=== PATIENT | female | born 1965 | race Caucasian/White ===

== ENCOUNTER → 2016-10-29 | Outpatient (CLI) | payer OTHER ==
--- NOTE | 2016-10-30 08:25 | MM ---
Reason for exam: screening (asymptomatic). Last mammogram was performed 1 year and 3 months ago. History: Patient is postmenopausal. Family history of premenopausal breast cancer in mother. 2 benign excisional biopsies of the right breast. Physical Findings: A clinical breast exam by your physician is recommended on an annual basis and results should be correlated with mammographic findings. MG Screening Mammo w CAD Bilateral CC and MLO view(s) were taken. Prior study comparison: August 01, 2015, bilateral MG screening mammo w CAD. July 07, 2014, bilateral MG screening mammo w CAD. The breast tissue is heterogeneously dense. This may lower the sensitivity of mammography. Benign calcifications bilaterally. No significant changes when compared with prior studies. ASSESSMENT: Benign, BI-RAD 2 RECOMMENDATION: Routine screening mammogram of both breasts in 1 year.
--- NOTE | 2016-10-31 11:54 | BD ---
EXAMINATION TYPE: MG DEXA axial skeleton. DATE OF EXAM: 10/29/2016 3:08 PM COMPARISON: NONE CLINICAL HISTORY: Height: 68 Weight: 184.7 FRAX RISK QUESTIONS: Alcohol (3 or more units per day): no Family History (Parent hip fracture): NO Glucocorticoids (More than 3mos): NO (Ex: prednisone, prednisolone, methylprednisolone, dexamethasone, and hydrocortisone). History of Fracture in Adulthood: NO Secondary Osteoporosis: 1. Type 1 Diabetes: NO 2. Hyperthyroidism: NO 3. Menopause before 45: YES 4. Malnutrition: NO 5. Chronic liver disease: NO Rheumatoid Arthritis: NO Current Tobacco Use: NO RISK FACTORS HISTORY OF: Hip Fracture (Right/Left): NO Spine Fracture: NO History of Wrist Fracture: NO Surgery to Spine/Hip(right/left)/Wrist (right/left): RT WRIST CARPAL TUNNEL When: UNSURE Family History of Osteoporosis: YES Active: YES Diet low in dairy products/other sources of calcium: NO Postmenopausal woman: HYSTERECTOMY AGE 41 Lost more than 2 inches in height since high school: JUST 2 INCHES Frequent falls: NO Adrenal Insufficiency: NO MEDICATIONS: CELEXA, WELLBUTRIN, NORCO, CALCIUM, VITAMINS Thyroid Medications: SYNTHROID How Long: MANY YEARS EXAM MEASUREMENTS: Bone mineral densitometry was performed using the [employer] System. Bone mineral density as measured about the Lumbar spine is: ----- L1-L4(G/cm2): 1.509 T Score Values are as follows: ----- L2: 2.5 ----- L3: 4.2 ----- L4: 3.3 ----- L1-L4: 2.7 Bone mineral density BASELINE Bone mineral density about the R hip (g/cm2): 1.154 Bone mineral density about the L hip (g/cm2): 1.162 T Score values are as follows: -----R Neck: 0.8 -----L Neck: 0.9 -----R Intertrochanter: 0.1 -----L Intertrochanter: -0.3 Bone mineral density BASELINE IMPRESSION: No evidence for osteoporosis or osteopenia NOTE: T-SCORE=SD OF THE YOUNG ADULT MEAN.
== END ==
LOC: RADMAMWWP 14:35
PROVIDERS: ATTEND Obstetrics & Gynecology
DX: Z12.31 Encounter for screening mammogram for malignant neoplasm of breast (principal); Z78.0 Asymptomatic menopausal state
CPT/HCPCS: 77080; G0202

== ENCOUNTER → 2017-12-17 | Outpatient (CLI) | payer OTHER ==
--- NOTE | 2017-12-25 11:06 | HM ---
HOLTER MONITOR REPORT A 24-hour DCG report. Patient did not have any significant symptoms except 2 episodes when she felt her heart raced for a few seconds. Predominant rhythm appears to be sinus with a heart rate ranging from 48 to 119 beats per minute. Average heart rate was 87 beats per minute. Rare isolated PVCs were noted and also rare PACs were noted. There was no significant bradyarrhythmia. When patient felt her racing heart, she had one isolated PVC on one occasion. At the other time when she complained of a racing heart, she had 2 to 3 PACs in a row. At other times, she had short runs of what seems to be a PAT at a rate of about 100 beats per minute of about 5 beats or so, but no significant symptoms were reported. FINAL IMPRESSION: This patient has predominant sinus rhythm with an average heart rate of 67 beats per minute. When she complained of having some racing heart, there was no significant arrhythmia. She did have PAT of about 5 beats in a row for which she did not report symptoms. Overall, no significant arrhythmia. MMODL / IJN: [id number] /
== END | disposition home or self-care (01) ==
LOC: RADECHMAIN 11:55
PROVIDERS: ATTEND Family Medicine
DX: R00.0 Tachycardia, unspecified (principal); R00.2 Palpitations
CPT/HCPCS: 93225; 93226

== ENCOUNTER → 2018-05-12 | Outpatient (CLI) | payer OTHER ==
--- NOTE | 2018-05-13 09:53 | US ---
EXAMINATION TYPE: US thyroid st tissue head/neck DATE OF EXAM: 05/12/2018 COMPARISON: NONE CLINICAL HISTORY: E01.0 Thyromegaly. Thyromegaly GLAND SIZE: Right Lobe: 4.5 x 1.7 x 1.6 cm Overall Parenchyma: homogenous Left Lobe: 3.6 x 1.3 x 1.2 cm Overall Parenchyma: homogeneous Isthmus Thickness: 0.3 cm NODULES RIGHT: # of nodules measured on right: 0 LEFT: # of nodules measured on left: 0 ISTHMUS: # of nodules measured in the isthmus: 0 Bilateral neck scanned, no evidence of lymphadenopathy. IMPRESSION: 1. Normal thyroid ultrasound
== END | disposition home or self-care (01) ==
LOC: RADUSWWP 15:13
PROVIDERS: ATTEND Family Medicine
DX: E01.0 Iodine-deficiency related diffuse (endemic) goiter (principal)
CPT/HCPCS: 76536

== ENCOUNTER → 2018-06-04 | Outpatient (CLI) | payer OTHER ==
--- NOTE | 2018-06-04 16:56 | FL ---
EXAMINATION TYPE: FL barium swallow DATE OF EXAM: 06/04/2018 COMPARISON: None HISTORY: Dysphasia TECHNIQUE: A double air contrast UGI study is performed. FINDINGS: Fluoroscopy: 58 seconds Images: 12 Esophagus dilates to normal caliber has normal contour to the gastroesophageal junction. Gastroesopha geal junction opens to normal caliber. There is complete stripping of the esophageal bolus in the hor izontal drinking position. No intraluminal or extramural defects are evident. IMPRESSIONS: 1. Normal esophagram
== END | disposition home or self-care (01) ==
LOC: RADFLWHC 10:30
PROVIDERS: ATTEND Otolaryngology
DX: R13.10 Dysphagia, unspecified (principal)
CPT/HCPCS: 74220

== ENCOUNTER → 2018-07-21 | Outpatient (CLI) | payer OTHER ==
--- NOTE | 2018-07-21 16:28 | MR ---
EXAMINATION TYPE: MR lumbar spine wo con DATE OF EXAM: 07/21/2018 COMPARISON: NONE HISTORY: Low back pain, intervertebral disc degeneration, and radiculopathy per order. Pain and numbn ess into bilateral buttocks and thigh since May 02 per patient TECHNIQUE: Multiplanar, multisequence imaging of the lumbar spine is performed without IV contrast. FINDINGS: Sagittal images of the lumbar spine show vertebral body heights and alignment to appear sat isfactory. Multilevel disc desiccation is present. There is mild multilevel disc space narrowing. The re is advanced disc space narrowing L5-S1 level with heterogeneous Modic type I endplate changes. Mil d multilevel anterior spurring is seen. Multilevel small posterior disc herniations are seen on sagit virgil images. The conus medullaris is normal in position and signal ending mid L1 level. There is 1.0 c m Tarlov cyst S2 level sagittal image 7. Axial images begin at T12-L1 level is felt within normal limits. Axial images at the L1-L2 level show mild broad based posterior disc protrusion mildly effacing anter ior thecal sac and axial image 23. Bilateral neural foramina are patent. Axial images at L2-L3 level show mild broad disc bulge mildly effacing anterior thecal sac, bilateral neural foramina are patent. Axial images at L3-L4 level show mild to moderate broad-based posterior disc protrusion mildly effaci ng anterior thecal sac and causing mild bilateral anterior inferior neural foraminal narrowing. Axial images at L4-L5 level show mild to moderate facet degenerative changes and ligament flavum hype rtrophy effacing posterior lateral thecal sac. There is broad disc bulge with central disc protrusion component effacing anterior thecal sac. Bilateral neural foramina are felt patent. Axial images at L5-S1 level show mild facet degenerative changes bilaterally. There is moderate broad disc bulge with central disc protrusion seen. Broad disc bulge causes mild to moderate left inferior neural foraminal narrowing and moderate to severe right-sided neural foraminal narrowing encroachmen t on right L5 nerve on sagittal image 12 and axial image 5. IMPRESSION: Multilevel degenerative changes in lumbar spine as detailed above, suspect right L5 radic ulopathy at L5-S1 level.
== END | disposition home or self-care (01) ==
LOC: RADMRIMAIN 14:31
PROVIDERS: ATTEND Physical Medicine & Rehabilitation
DX: M47.817 Spondylosis without myelopathy or radiculopathy, lumbosacral region (principal); M54.16 Radiculopathy, lumbar region; Z79.899 Other long term (current) drug therapy
CPT/HCPCS: 72148

== ENCOUNTER → 2024-01-22 | Outpatient (CLI) | payer OTHER ==
[2024-01-22 14:51] VITALS: BP 120/70; PULSE 59; RESP 16; TEMP 98
--- NOTE | 2024-01-22 15:00 | P.PN ---
Subjective DATE: 01/22/2024 FOLLOW UP VISIT. Patient with obstructive sleep apnea hypopnea syndrome return to sleep center for follow-up visit. Information from previous visit have been reviewed. Patient is using PAP equipment every night for the whole night, getting PAP supplies in time. The patient does not have significant problems with the mask, PAP unit and humidification. [place] sleepiness scale is 2, which is perfect. I checked information from PAP unit. PAP unit pressure 10 cm H2O. Usage is 100% for more then 4 hours, average 7.8 hours per night. Leak is 20 l/m, which is in acceptable range. Apnea Hypopnea Index is 2.4, which is normal. MEDICATIONS:1. Levothyroxine 50 mcg once a day 2. Citalopram 40 mg once a day 3. Losartan 25 mg once a day 4. Singulair 10 mg once a day During physical exam: GENERAL: A pleasant patient without any distress. VITAL SIGNS: Please see below, weight 198.6 pounds. HEENT: PERRLA, EOMI. short distance between soft palate and posterior pharyngeal wall . NECK: Supple. No JVD. LUNGS: Clear to percussion and to auscultation. Good air exchange. No wheezing or rhonchi. HEART: S1, S2 regular. ABDOMEN: Soft and nontender.[] EXTREMITIES: No clubbing or cyanosis. EXHIBIT PREPARATOR: Awake, alert, and oriented x3. No focal deficit. Impressions: 1. Obstructive sleep apnea-hypopnea syndrome. Patient demonstrated great compliance with treatment, benefiting from treatment. 2. Hypothyroidism. 3. Fibromyalgia. 4. Headaches. 5. Arthritis. 6. History of sinusitis. 7. Status post tonsillectomy. 8. Status post partial hysterectomy. 9. Status post left knee replacement. Plan: 1. Continue using PAP equipment every night for the whole night. 2. To change air filter at least 1-2 times per month. 3. PAP unit should stay lower then position of the head. 4. Advised patient to remove all remaining water from humidifier canister daily and make it dry after each usage. Refill canister with fresh distilled water before each usage. 5. Sleep hygiene with regular time in bed for at least 8 hours. 6. Precautions related to driving. No driving if feel any sleepiness. 7. I will maintain prescription for PAP supplies including mask, tube, filters. 8. Follow up visit in 6 months or earlier if patient has any problems. 9. Watching weight. Thank you very much for allowing me to participate in the management of your patient. Danish Salazar MD, PhD, FAASM. Diplomat of [place] [employer], Sleep Medicine Board by [place] [employer] Algology Teacher of [facility] [place] Objective - Vital Signs Vital signs: Vital Signs Temp 98.0 F 01/22/24 14:36 Pulse 59 L 01/22/24 14:36 Resp 16 01/22/24 14:36 BP 120/70 01/22/24 14:36 Pulse Ox 96 01/22/24 14:36 FiO2
== END ==
LOC: 3 N SLEEP 14:12
PROVIDERS: ATTEND Internal Medicine
DX: G47.33 Obstructive sleep apnea (adult) (pediatric) (principal); E03.9 Hypothyroidism, unspecified; M79.7 Fibromyalgia; R51.9 Headache, unspecified; M19.90 Unspecified osteoarthritis, unspecified site; Z98.890 Other specified postprocedural states; Z90.89 Acquired absence of other organs; Z90.711 Acquired absence of uterus with remaining cervical stump; Z96.652 Presence of left artificial knee joint; Z99.89 Dependence on other enabling machines and devices; Z87.09 Personal history of other diseases of the respiratory system; Z79.890 Hormone replacement therapy
CPT/HCPCS: 99212

== ENCOUNTER → 2024-03-16 | Outpatient (CLI) | payer OTHER ==
--- NOTE | 2024-03-17 09:14 | MM ---
Reason for Exam: Screening (asymptomatic). Last mammogram was performed 7 year(s) and 5 month(s) ago. Patient History: Menarche at age 14. First Full-Term at age 29. Left ovary removed at age 41. Right ovary removed at age 41. Hysterectomy at age 41. Postmenopausal. Benign Excisional Biopsy on the right side. Benign Excisional Biopsy on the right side. Mother had breast cancer. Risk Values: Maria Esther 5 year model risk: 3.8%. NCI Lifetime model risk: 21.4%. Prior Study Comparison: 07/07/2014 Bilateral Screening Mammogram, [facility]. 08/01/2015 Bilateral Screening Mammogram, [facility]. 10/29/2016 Bilateral Screening Mammogram, [facility]. Tissue Density: The breasts are extremely dense, which lowers the sensitivity of mammography. Findings: Analyzed By CAD. There is no suspicious group of microcalcifications or new suspicious mass in either breast. Overall Assessment: Benign, BI-RAD 2 Management: Screening Mammogram of both breasts in 1 year. . Patient should continue monthly self-breast exams. A clinical breast exam by your physician is recommended on an annual basis. This exam should not preclude additional follow-up of suspicious palpable abnormalities. Note on Maria Esther scores and lifetime risk: 1. A Maria Esther score greater than 3% is considered moderate risk. If this is the case, consider specialist referral to assess eligibility for a risk reducing agent. 2. If overall lifetime risk for the development of breast cancer is 20% or higher, the patient may qualify for future screening with alternating mammogram and breast MRI. Electronically signed and approved by: Eduardo Odonnell M.D. Radiologis
== END | disposition home or self-care (01) ==
LOC: RADMAMWWP 11:19
PROVIDERS: ATTEND Family Medicine
DX: Z12.31 Encounter for screening mammogram for malignant neoplasm of breast (principal); Z80.3 Family history of malignant neoplasm of breast; Z78.0 Asymptomatic menopausal state
CPT/HCPCS: 77063; 77067

== ENCOUNTER → 2024-03-25 | Outpatient (CLI) | payer OTHER ==
--- NOTE | 2024-03-25 14:48 | MR ---
EXAMINATION TYPE: MR brain wo con DATE OF EXAM: 03/25/2024 2:43 PM COMPARISON: NONE HISTORY: Forgetting things, headaches FINDINGS: The ventricles, basal cisterns and sulci overlying the cerebral convexities are mildly enlarged. There is evidence of mild periventricular white matter ischemic demyelination. Remote deep white matter insults are also noted. No acute edema is seen on diffusion weighted imaging. There is no evidence for midline shift or mass effect. Acute intracranial hemorrhage or extra-axial collection is not evident. The paranasal sinuses and mastoid air cells are well-aerated. IMPRESSION: Age-related atrophic and chronic small vessel ischemic change. No acute intracranial process at this time.
== END | disposition home or self-care (01) ==
LOC: RADMRIMAIN 13:48
PROVIDERS: ATTEND Family Medicine
DX: I67.82 Cerebral ischemia (principal); R41.3 Other amnesia
CPT/HCPCS: 70551

== ENCOUNTER → 2024-08-26 | Outpatient (CLI) | payer OTHER ==
[2024-08-26 14:09] VITALS: BP 108/68; PULSE 68; RESP 16; TEMP 98
--- NOTE | 2024-08-26 14:21 | P.PROGSL ---
Subjective DATE: 09/03/2024 FOLLOW UP VISIT. Patient with obstructive sleep apnea hypopnea syndrome return to sleep center for follow-up visit. Information from previous visit have been reviewed. Patient is using PAP equipment every night for the whole night, getting PAP supplies in time. The patient does not have significant problems with the mask, PAP unit and humidification. [place] sleepiness scale is 9, which is borderline. I checked information from PAP unit. PAP unit pressure 10 cm H2O. Usage is 100% for more then 4 hours, average 8 hours per night. Leak is slightly increased to 31 l/m. Apnea Hypopnea Index is 2.6, which is normal. MEDICATIONS have been reviewed, please see below. During physical exam: GENERAL: A pleasant patient without any distress. VITAL SIGNS: Please see below, weight is 197 lbs. HEENT: PERRLA, EOMI.low position of soft palate, Mall[place]ati 23. NECK: Supple. No JVD. LUNGS: Clear to percussion and to auscultation. Good air exchange. No wheezing or rhonchi. HEART: S1, S2 regular. ABDOMEN: Soft and nontender.[] EXTREMITIES: No clubbing or cyanosis. ENROBER TENDER: Awake, alert, and oriented x3. No focal deficit. Impressions: 1. Obstructive sleep apnea-hypopnea syndrome. Patient demonstrated great compliance with treatment, benefiting from treatment. 2. Hypothyroidism. 3. Fibromyalgia. 4. History of headaches. 5. Arthritis. 6. History of sinusitis. 7. Status post left knee replacement. 8. Status post partial hysterectomy. 9. Status post tonsillectomy. Plan: 1. Continue using PAP equipment every night for the whole night. 2. Sleep hygiene with regular time in bed for at least 7.5-8 hours 3. PAP unit should stay lower then position of the head. 4. Advised patient to remove all remaining water from humidifier canister daily and make it dry after each usage. Refill canister with fresh distilled water before each usage. 5. Watching weight. 6. Precautions related to driving. No driving if feel any sleepiness. 7. I will maintain prescription for PAP supplies including mask, tube, filters. 8. Follow up visit in 8 months or earlier if patient has any problems. Thank you very much for allowing me to participate in the management of your patient. Danish Salazar MD, PhD, FAASM. Diplomat of [place] [employer], Sleep Medicine Board by [place] [employer] House Moving Supervisor of [facility] [place] Objective - Vital Signs Vital Signs: Vital Signs Temp 98 F 08/26/24 14:08 Pulse 68 08/26/24 14:08 Resp 16 08/26/24 14:08 BP 108/68 08/26/24 14:08 Pulse Ox 98 08/26/24 14:08 FiO2 Intake & Output 08/25/24 08/26/24 08/26/24 18:59 06:59 18:59 Weight 89.358 kg Home Medications: Home Medications Medication Instructions Recorded Confirmed Type Atorvastatin [Lipitor] 10 mg PO HS 08/26/24 08/26/24 History Calcium Carbonate/Vitamin D3 600 mg PO BID 08/26/24 08/26/24 History [Calcium 600-Vit D3 5 Mcg (200 Iu)] Levothyroxine Sodium [Tirosint] 50 mcg PO DAILY 08/26/24 08/26/24 History Magnesium Oxide [Magox 400] 400 mg PO DAILY 08/26/24 08/26/24 History Montelukast [Singulair] 10 mg PO HS 08/26/24 08/26/24 History Venlafaxine HCl [Effexor XR] 150 mg PO DAILY 08/26/24 08/26/24 History
== END ==
LOC: 3 N SLEEP 13:58
PROVIDERS: ATTEND Internal Medicine
DX: G47.33 Obstructive sleep apnea (adult) (pediatric) (principal); E03.9 Hypothyroidism, unspecified; M79.7 Fibromyalgia; M19.90 Unspecified osteoarthritis, unspecified site; Z96.652 Presence of left artificial knee joint; Z90.711 Acquired absence of uterus with remaining cervical stump; Z90.89 Acquired absence of other organs; Z98.890 Other specified postprocedural states; Z99.89 Dependence on other enabling machines and devices; Z86.69 Personal history of other diseases of the nervous system and sense organs; Z87.09 Personal history of other diseases of the respiratory system; Z79.890 Hormone replacement therapy
CPT/HCPCS: 99212